=== PATIENT | male | born 1970 | race Caucasian/White ===

== ENCOUNTER 2020-05-24 16:25 | Emergency (ER) | payer SELFPAY ==
[2020-05-24 16:36] VITALS: BP 164/106; PULSE 97; RESP 18; TEMP 36.6; O2SAT 98; BMI 30.4
--- NOTE | 2020-05-24 17:09 | XR_ITS ---
WS: [id number] Left forearm, AP and lateral views, 05/24/2020 Clinical Data: injury Comparison: None. Findings: No fracture or dislocations are seen. There is soft tissue swelling on the ulnar side of the forearm at the junction of the middle and proximal thirds. There are small densities in this region. They may represent retained foreign bodies. There are also surgical jung at the swelling. The visualized l eft wrist and elbow show no obvious abnormalities. XR/XR forearm LT 2V [id number] Impression: 1. Soft tissue swelling of the ulnar side of the subcutaneous tissue of the miley ction of the proximal and middle thirds of the left forearm. 2. Small radiopaque foreign bodies near the site of injury and also proximal to the site of injury.
--- NOTE | 2020-05-24 17:13 | W.ED.EXTPRO ---
HPI - Extremity Problem General: Chief complaint: Extremity Injury, Upper Stated complaint: L ARM INJURY Time Seen by Provider: 05/24/20 16:42 Source: patient Mode of arrival: ambulatory Limitations: no limitations History of Present Illness: HPI Narrative: 49-year-old male who states tempered glass shattered lacerated his left forearm. He is roughly 7 a centimeter laceration to the forearm. He denies any loss of sensation or strength distally. He denies any retained foreign bodies. His last tetanus was less than 5 years ago. Associated symptoms: Deny chest pain, fever(s) or rash Review of Systems Const: Denies: fever(s), chills, body aches or change in appetite Eyes: Denies: blurry vision or eye discomfort ENMT: Denies: throat pain or dental pain Card: Denies: chest pain Resp: Denies: dyspnea GI: Denies: abdominal pain, nausea, vomiting or diarrhea : Denies: dysuria Musc: Denies: neck pain or back pain Skin/Breast: Denies: rash Neuro: Denies: headache(s) Psych: Denies: depression Apolinar/Lymph: Denies: easy bruising All/Imm: Denies: urticaria Physical Exam Const: COMMON NORMALS: no acute distress, patient oriented x3 and healthy appearing HENMT: COMMON NORMALS: normocephalic and atraumatic HEAD & SCALP: normocephalic and atraumatic Eye: COMMON NORMALS: Equal, round and reactive pupils present and EOMs intact bilaterally PUPIL: Yes Equal, round and reactive pupils present Neck/C-Spine: COMMON NORMALS: full ROM and supple Chest: COMMONS NORMALS: normal inspection of the chest and normal palpation of entire chest wall Resp: COMMON NORMALS: normal respiratory effort, No retractions, No use of accessory muscles and clear to auscultation bilaterally AUSCULTATION: clear to auscultation bilaterally Cardio: COMMON NORMALS: regular rate, regular rhythm and No murmurs present (Cardio) RATE: regular rate RHYTHM: regular rhythm GI: COMMON NORMALS: Normal to inspection, nondistended, normoactive bowel sounds present, Soft to palpation, non-tender and no masses PALPATION: Yes Soft to palpation Extremity: COMMON NORMALS: normal to inspection and full ROM Neuro: COMMON NORMALS: patient oriented x3, moves all extremities and no focal motor deficits Psych: COMMON NORMALS: mental status grossly normal, Normal thought process present and cooperative THOUGHT PROCESS: Normal thought process present Skin: COMMON NORMALS: no rashes or lesions noted NARRATIVE SKIN EXAM: 8 cm laceration with no muscle involvement. Patient has multiple small pieces of glass in there. Patient has full sensation intact distally and no pulse deficits. GENERAL SKIN EXAM: no rashes or lesions noted Procedures Laceration Laceration 1: Site: upper extremity Side (If applicable): left Size (cm): 8 Description: linear Local Anesthetic: lidocaine 1% Amount of anesthesia used (mL): 10 Pre-repair: wound explored, irrigated extensively and deep structures intact Skin layer closed with: other (jung) Course Vital Signs: Vital signs: Vital Signs Temperature 97.8 F 05/24/20 16:36 Pulse Rate 97 05/24/20 16:36 Respiratory Rate 18 05/24/20 16:36 Blood Pressure 164/106 05/24/20 16:36 Pulse Oximetry 98 05/24/20 16:36 MDM - Extremity (Nontraumatic) MDM Narrative: Medical decision making narrative: Patient presents here with forearm laceration. He had multiple pieces of glass in the wound I did irrigate it as thoroughly as possible. X-ray still showed one small piece of possibly retained glass that was unable to washout. Will place patient on Keflex and have him follow-up with Ellie. Patient is to have his jung out in 2 weeks. He had no neurovascular compromise. He is to return if worsening. Imaging Data^: Other Xray: Attestation: I personally reviewed and interpreted this imaging study as follows: My impression: possible small foreign body noted Discharge Plan Discharge Patient Disposition: Home Clinical Impression: Forearm laceration Qualifiers: Encounter type: initial encounter Laterality: left Qualified Code(s): S51.812A - Laceration without foreign body of left forearm, initial encounter Condition: Stable Prescriptions: New Keflex 500 mg capsule 500 mg PO Q6H 7 Days Qty: 28 RF: 0 Discharge Orders: Discharge Order (Routine); Ordered 05/24/20 Ordered By: Cali Santana Referrals: Manpreet Argueta MD [Physician] - 1-3 days Discharge Diet: Advance as tolerated Discharge Activity: Resume usual activity Patient Instructions: Laceration (ED) Activity Restrictions/Additional Instructions: jung need removed in 2 weeks Coding Level of Care Code ED Lithographers Printer for Chg Fwd
[2020-05-24 18:05] VITALS: BP 140/74; PULSE 70; RESP 18; O2SAT 98
--- NOTE | 2020-05-25 08:54 | DCPLANNER ---
land development manager had message to schedule a follow up appointment for patient with ortho. land development manager called the ortho clinic, spoke with Lesvia, gave clinic patients information. land development manager was told that patients information would be printed and reviewed. Clinic will call patient with appointment information.
--- NOTE | 2020-05-31 12:29 | DCPLANNER ---
Patient has a follow up appointment scheduled for May at 9:[address] Romero. Clinic will call patient with appointment information.
--- NOTE | 2020-06-16 17:31 | DCPLANNER ---
Patient had a follow up appointment scheduled for 06.01.20 with ortho - patient did not attend appointment.
== END 2020-05-24 18:10 | disposition home or self-care (01) ==
PROVIDERS: Emergency Provider Emergency Medicine
DX: S51.812A Laceration without foreign body of left forearm, initial encounter (principal); W25.XXXA Contact with sharp glass, initial encounter
CPT/HCPCS: 12004; 12345; 73090; 99281; 99283

== ENCOUNTER 2021-07-12 00:32 | Emergency (ER) | payer SELFPAY ==
[2021-07-12 00:50] VITALS: BP 171/86; PULSE 84; RESP 18; TEMP 36.3; O2SAT 95; BMI 30.1
--- NOTE | 2021-07-12 01:01 | XRR_ITS ---
PROCEDURE INFORMATION: Exam: XR Abdomen Exam date and time: 07/12/2021 1:01 AM Age: 50 years old Clinical indication: Abdominal pain; Generalized; Patient HX: Constipation with n/v. ; Additional info: Generalized abdominal pain, constipation TECHNIQUE: Imaging protocol: XR of the abdomen. Views: Frontal supine view of the abdomen. 1 View. COMPARISON: CR Chest 2 views* [id number] 10/12/2018 10:09 AM FINDINGS: Gastrointestinal tract: Moderate fecal volume. No bowel dilation. Bones/joints: Unremarkable. XR/XR KUB [id number] IMPRESSION: No acute findings. Radiation Dose CTDIVOL = (mGy): DLP = (mGy-cm)
--- NOTE | 2021-07-12 01:01 | W.ED.ABDPA2 ---
HPI - Abdominal Pain General: Chief Complaint: Abdominal Pain Stated Complaint: N/V, constipated Time Seen by Provider: 07/12/21 00:42 History of Present Illness: HPI narrative: Patient is a 50-year-old male comes to the ED with abdominal pain, constipation, nausea and vomiting. Symptoms started approximately 2 hours before arriving to the ED and were sudden onset. He describes the pain as being in his left flank and radiating to the front of his abdomen. He says he cannot get comfortable and he developed nausea and had an episode of emesis as well. Pain was worse and has improved since coming to the ED and he currently rates his pain a 5 out of 10. He says he felt like he needed to have a bowel movement but was unable to. Endorses constipation and says that he has not had a bowel movement in over 24 hours. Denies any fever, chills, bladder or bowel symptoms. Denies any relieving or worsening factors. Denies any history of kidney stones. Patient says he does not want any pain meds at this time. Associated Symptoms: Reports constipation, nausea and vomiting; Denies chills, diarrhea, dysuria, fever(s), hematochezia and hematuria Review of Systems Const: Denies: fever(s), chills or fatigue Eyes: Denies: change in vision or eye discomfort ENMT: Denies: throat pain, odynophagia, nasal discharge or nasal congestion Card: Denies: chest pain, palpitations, edema, swelling of feet/ankles, dyspnea on exertion or orthopnea Resp: Denies: dyspnea, productive cough or non-productive cough GI: Reports: abdominal pain, nausea, vomiting and constipation; Denies: diarrhea or hematochezia : Reports: flank pain (left flank); Denies: difficulty urinating, dysuria or hematuria Musc: Denies: neck pain, back pain or extremity swelling Skin/Breast: Denies: rash or new lesions Neuro: Denies: headache(s), numbness in extremities or weakness in extremities Physical Exam Narrative: EXAM NARRATIVE: Patient is a 50-year-old male that appears uncomfortable and in some pain during exam. He is sitting up in constantly moving/repositioning during exam. Const: COMMON NORMALS: patient oriented x3 and alert GENERAL APPEARANCE: cooperative; not comfortable (Patient appears uncomfortable and is sitting up in repositioning during exa) HENMT: COMMON NORMALS: normocephalic HEAD & SCALP: normocephalic MOUTH: Normal oral and palatal mucosa present THROAT: posterior oropharynx normal and uvula midline Neck/C-Spine: COMMON NORMALS: supple GENERAL: Yes normal visual inspection Resp: COMMON NORMALS: normal respiratory effort, No retractions, No use of accessory muscles and clear to auscultation bilaterally AUSCULTATION: clear to auscultation bilaterally Cardio: COMMON NORMALS: regular rate, regular rhythm, S1 normal heart sound present, S2 normal heart sound present, No gallops present (Cardio), No clicks present (Cardio), No murmurs present (Cardio) and Peripheral pulses 2+ throughout RATE: regular rate RHYTHM: regular rhythm HEART SOUNDS: S1 normal heart sound present and S2 normal heart sound present PERIPHERAL PULSES: Peripheral pulses 2+ throughout GI: COMMON NORMALS: Normal to inspection, nondistended, normoactive bowel sounds present, Soft to palpation, non-tender and no masses INSPECTION: Yes central obesity PALPATION: Yes Soft to palpation : COMMON NORMALS: Yes no CVA tenderness BLADDER/KIDNEY EXAM: Yes no CVA tenderness Back/Pelvis: COMMON NORMALS: no CVA tenderness Extremity: COMMON NORMALS: normal to inspection Neuro: COMMON NORMALS: patient oriented x3 SENSORIUM/ORIENTATION: Yes alert GAIT: Yes Normal gait present Skin: GENERAL SKIN EXAM: dry skin Course ED course: After my initial history and exam of patient. I offered some pain meds. Patient said he does not want any pain meds at this time. I told him to let me know if he changes his mind. Vital Signs: Vital signs: Vital Signs Temperature 97.4 F L 07/12/21 00:50 Pulse Rate 84 07/12/21 00:50 Respiratory Rate 18 07/12/21 00:50 Blood Pressure 171/86 07/12/21 00:50 Pulse Oximetry 95 07/12/21 00:50 MDM - Abdominal Pain MDM Narrative: Medical decision making narrative: Patient is a 50-year-old male comes to the ED with acute onset of left flank pain, nausea, vomiting. Symptoms started a couple hours prior to arrival to the ED. Patient also endorsed having some constipation as well. Exam shows a patient that appears uncomfortable and constantly changing positions. No palpable abdominal tenderness and no CVA tenderness. Vital stable. White blood cell count 19.9 and the rest of CBC and CMP were unremarkable. Blood cultures pending. UA shows a lot of red blood cells but no signs of any infection. KUB showed no acute findings. CT of abdomen showed 2 distal left ureter kidney stones close to UVJ. Stone sizes are 3 mm and 4 mm. Patient was given IV fluids, Zofran, tamsulosin and Toradol while here in the ED and his symptoms improved. I placed an order with rehabilitation case coordinator for patient be referred to urologist for further evaluation of kidney stones. He was discharged home with a prescription for Zofran, tamsulosin and naproxen. Patient did not want narcotic pain meds. He was told to strain his urine to catch stone to bring stone to Dr. Moore's office at scheduled appointment. Return to ED precautions given. Patient understood agree with plan. Lab Data: Attestation: I reviewed the patient's lab results. Labs: Lab Results 07/12/21 07/12/21 07/12/21 01:00 01:28 01:28 WBC 19.9 10^3/uL H 10 ^3/uL (4.0-10.0) RBC 5.26 10^6/uL 10^6 /uL (4.1-5.3) Hgb 16.5 g/dL g/dL (11.7-16.6) Hct 49.1 % % (42.0-52.0) MCV 93.3 fl fl (80-94) MCH 31.4 pg pg (28.0-34.0) MCHC 33.6 g/dL g/dL (30.0-36.0) RDW 12.7 % % (12.1-15.1) Plt Count 270 10^3/cmm 10^3 /cmm (130-400) MPV 9.7 fL fL (7.4-10.4) Neut % (Auto) 87.7 % % Lymph % (Auto) 7.4 % % [place] % (Auto) 3.6 % % Eos % (Auto) 0.1 % % Baso % (Auto) 0.6 % % Neut # (Auto) 17.43 10^3/uL H 1 0^3/uL (1.8-7.7) Lymph # (Auto) 1.5 10^3/uL 10^3/ uL (0.8-4.8) [place] # (Auto) 0.7 10^3/uL 10^3/ uL (0.2-0.9) Eos # (Auto) 0.0 10^3/uL 10^3/ uL (0.0-0.8) Baso # (Auto) 0.1 10^3/uL 10^3/ uL (0.0-0.1) Nucleated RBC % (a uto) 0 % % Nucleated RBCs # 0.0 /100WBC /100W BC Sodium 139 mmol/L mmol/L (136-145) Potassium 4.5 mmol/L mmol/L (3.5-5.1) Chloride 103 mmol/L mmol/L (98-107) Carbon Dioxide 21 mmol/L L mmol/ L (22-29) Anion Gap 19.5 H (5-19) BUN 11 mg/dL mg/dL (6-20) Creatinine 1.1 mg/dL mg/dL (0.7-1.2) GFR Calculation 71.4 mL/min L mL/ min (90-130) Glucose 146 mg/dL H mg/dL (65-115) Calculated Osmolal ity 290 mOsm/kg mOsm/ kg (285-295) Calcium 8.9 mg/dL mg/dL (8.5-10.5) Total Bilirubin 0.2 mg/dL mg/dL (0.15-1.2) AST 15 U/L U/L (0-40) ALT 22 U/L U/L (0-41) Alkaline Phosphata se 95 IU/L IU/L (40-130) Total Protein 7.6 g/dL g/dL (6.6-8.7) Albumin 4.3 g/dL g/dL (3.5-5.2) Globulin 3.3 g/dL g/dL (1.3-4.6) Lipase 24 U/L U/L (13-60) Urine Color Yellow (Yellow) Urine Appearance Clear (CLEAR) Urine pH 5 (5-7) Ur Specific Gravit y 1.020 (1.005-1.030) Urine Protein Trace (Negative) Urine Glucose (UA) Norm (Normal) Urine Ketones Negative (Negative) Urine Blood 3+ H (Negative) Urine Nitrate Negative (Negative) Urine Bilirubin Neg (Negative) Urine Urobilinogen 1 mg/dL H mg/dL (Negative) Ur Leukocyte Kelley ase Negative (Negative) Urine RBC Too numerous to c nt /hpf H /hpf (0-2) Urine WBC Rare /hpf /hpf (0-5) Ur Squamous Epith Cells 0-4 /hpf H /hpf (0-5) Amorphous Sediment Not Reportable Urine Bacteria None /hpf /hpf (NONE) Imaging Data ^: KUB: Attestation: I personally reviewed and interpreted this imaging study as follows: Radiologist's impression: [facility] [address] [place] [id number] XRay Report Signed Patient: Kevin Carrillo Unit #: [id number] : 1970 Age/Sex: 50 / M ADM Date: 07/12/21 Loc: ER Room/Bed: Attending Dr: Ordering Provider/Ordering MD: Kevin Chang Date of Service: 07/12/21 Procedure(s): XR KUB 73896 Accession Number(s): [id number] Report Number: [id number] PROCEDURE INFORMATION: Exam: XR Abdomen Exam date and time: 07/12/2021 1:01 AM Age: 50 years old Clinical indication: Abdominal pain; Generalized; Patient HX: Constipation with n/v. ; Additional info: Generalized abdominal pain, constipation TECHNIQUE: Imaging protocol: XR of the abdomen. Views: Frontal supine view of the abdomen. 1 View. COMPARISON: CR Chest 2 views* [id number] 10/12/2018 10:09 AM FINDINGS: Gastrointestinal tract: Moderate fecal volume. No bowel dilation. Bones/joints: Unremarkable. XR/XR KUB [id number] IMPRESSION: No acute findings. Radiation Dose CTDIVOL = (mGy): DLP = (mGy-cm) Dictated By: Pravin Godoy Signed By: Pravin Godoy Signed Date/Time: 07/12/21225 DD/ 0 CT Abd/Pel: Attestation: I personally reviewed and interpreted this imaging study as follows: Radiologist's impression: [facility] [address] [place] [id number] Scan Report Signed Patient: Kevin Carrillo [facility] [id number] [facility] 1970 [id number] Age/Sex: 50 / M ADM Date: 07/12/21 Loc: ER Room/Bed: Attending Dr: Ordering Provider/Ordering MD: Kevin Chang Date of Service: 07/12/21 Procedure(s): CT kidney stone [id number] Accession Number(s): [id number] Report Number: [id number] PROCEDURE INFORMATION: Exam: CT Abdomen And Pelvis Without Contrast Exam date and time: 07/12/2021 1:29 AM Age: 50 years old Clinical indication: Abdominal pain; Patient HX: Left flank pain with micro hematuria. ; Additional info: Sudden onset of left flank pain, n/v TECHNIQUE: Imaging protocol: Computed tomography of the abdomen and pelvis without contrast. Radiation optimization: All CT scans at this facility use at least one of these dose optimization techniques: automated exposure control; mA and/or kV adjustment per patient size (includes targeted exams where dose is matched to clinical indication); or iterative reconstruction. COMPARISON: CR (ABDOMEN, ) 07/12/2021 1:06 AM RADIATION DOSE METRICS: Total DLP (mGy-cm): 1770.57 FINDINGS: Liver: Normal. No mass. Gallbladder and bile ducts: Normal. No calcified stones. No ductal dilation. Pancreas: Normal. No ductal dilation. Spleen: 13.8 cm mild splenomegaly. Adrenal glands: Normal. No mass. Kidneys and ureters: 3 mm distal left ureteral stone at the level of S4, 4 cm proximal to the left UVJ, with mild left hydronephrosis. Stomach and bowel: Unremarkable. No obstruction. No mucosal thickening. Appendix: No evidence of appendicitis. Intraperitoneal space: Unremarkable. No free air. No significant fluid collection. Vasculature: Calcification of the abdominal aorta and/or iliac arteries consistent with atherosclerotic vessel disease. Lymph nodes: Unremarkable. No enlarged lymph nodes. Urinary bladder: Unremarkable as visualized. Reproductive: Nonspecific prostate calcifications. Bones/joints: Unremarkable. No acute fracture. Soft tissues: Unremarkable. CT/CT kidney stone [id number] IMPRESSION: 3 mm distal left ureteral stone at the level of S4, 4 cm proximal to the left UVJ, with mild left hydronephrosis. Radiation Dose CTDIVOL = (mGy): DLP = 1770.57 (mGy-cm) Dictated By: Blue Neff MD Signed By: Blue Neff MD Signed Date/Time: 07/12/21312 DD/ Discharge Plan Discharge Patient Disposition: Home Clinical Impression: Kidney stone on left side Condition: Stable Prescriptions: New tamsulosin 0.4 mg capsule 0.4 mg PO DAILY Qty: 15 RF: 0 Naprosyn 500 mg tablet 500 mg PO BID PRN (Reason: pain) Qty: 20 RF: 0 Zofran 4 mg tablet 4 mg PO Q8H PRN (Reason: nausea and vomiting) Qty: 10 RF: 0 Discharge Orders: Discharge ED (Routine); Ordered 07/12/21 Ordered By: Kevin Chang Discharge Diet: Regular Discharge Activity: Resume usual activity Patient Instructions: Kidney Stones (ED), How to Strain Your Urine (ED) Activity Restrictions/Additional Instructions: Follow-up with medical provider as directed. Case management should be contacting you in the next several days to set up an appointment with Dr. Moore the urologist. Strain urine to catch stone and drink lots of fluid to stay hydrated and help pass stone. Take medications as prescribed. Return to the ER or your medical provider if condition worsens. Please read and understand discharge instructions. If any questions, please ask. Coding Level of Care Code ED Client Services Administrator for Anneg Fwd Exam Comprehensive
--- NOTE | 2021-07-12 01:29 | CTR_ITS ---
PROCEDURE INFORMATION: Exam: CT Abdomen And Pelvis Without Contrast Exam date and time: 07/12/2021 1:29 AM Age: 50 years old Clinical indication: Abdominal pain; Patient HX: Left flank pain with micro hematuria. ; Additional info: Sudden onset of left flank pain, n/v TECHNIQUE: Imaging protocol: Computed tomography of the abdomen and pelvis without contrast. Radiation optimization: All CT scans at this facility use at least one of these dose optimization techniques: automated exposure control; mA and/or kV adjustment per patient size (includes targeted exams where dose is matched to clinical indication); or iterative reconstruction. COMPARISON: CR (ABDOMEN, ) 07/12/2021 1:06 AM RADIATION DOSE METRICS: Total DLP (mGy-cm): 1770.57 FINDINGS: Liver: Normal. No mass. Gallbladder and bile ducts: Normal. No calcified stones. No ductal dilation. Pancreas: Normal. No ductal dilation. Spleen: 13.8 cm mild splenomegaly. Adrenal glands: Normal. No mass. Kidneys and ureters: 3 mm distal left ureteral stone at the level of S4, 4 cm proximal to the left UVJ, with mild left hydronephrosis. Stomach and bowel: Unremarkable. No obstruction. No mucosal thickening. Appendix: No evidence of appendicitis. Intraperitoneal space: Unremarkable. No free air. No significant fluid collection. Vasculature: Calcification of the abdominal aorta and/or iliac arteries consistent with atherosclerotic vessel disease. Lymph nodes: Unremarkable. No enlarged lymph nodes. Urinary bladder: Unremarkable as visualized. Reproductive: Nonspecific prostate calcifications. Bones/joints: Unremarkable. No acute fracture. Soft tissues: Unremarkable. CT/CT kidney stone [id number] IMPRESSION: 3 mm distal left ureteral stone at the level of S4, 4 cm proximal to the left UVJ, with mild left hydronephrosis. Radiation Dose CTDIVOL = (mGy): DLP = 1770.57 (mGy-cm)
[2021-07-12 01:46] LABS: Basophils # 0.1 10^3/uL (0.0-0.1); Basophils % 0.6 %; Eosinophils % 0.1 %; Hematocrit 49.1 % (42.0-52.0); Hemoglobin 16.5 g/dL (11.7-16.6); Lymphocytes # 1.5 10^3/uL (0.8-4.8); Lymphocytes % 7.4 %; Mean Corpuscular HGB Conc 33.6 g/dL (30.0-36.0); Mean Corpuscular Hemoglobin 31.4 pg (28.0-34.0); Mean Corpuscular Volume 93.3 fl (80-94); Mean Platelet Volume 9.7 fL (7.4-10.4); Monocytes # 0.7 10^3/uL (0.2-0.9); Monocytes % 3.6 %; Neutrophils # 17.43 10^3/uL (1.8-7.7); Neutrophils % 87.7 %; Nucleated Red Blood Cells % 0 %; Platelet Count 270 10^3/cmm (130-400); Red Blood Count 5.26 10^6/uL (4.1-5.3); Red Cell Distribution Width 12.7 % (12.1-15.1); White Blood Count 19.9 10^3/uL (4.0-10.0)
[2021-07-12] MEDS: sodium chloride 0.9% 500 ML 999 ML IV (01:50)
[2021-07-12] MEDS: ondansetron 2 mg/ML SDV 2 mL 4 MG IVP (01:52)
[2021-07-12 02:07] LABS: Bilirubin Urine Neg (Negative); Blood Urine 3+ (Negative); Glucose Urine UA Norm (Normal); Ketones Urine Negative (Negative); Leukocyte Esterase Urine Negative (Negative); Nitrate Urine Negative (Negative); Protein Urine Trace (Negative); Urine Appearance Clear (CLEAR); Urine Color Yellow (Yellow); Urobilinogen Urine 1 mg/dL (Negative); pH Urine 5 (5-7)
[2021-07-12 02:08] LABS: Add Urine Microscopic? YES
[2021-07-12 02:09] LABS: Alanine Aminotransferase 22 U/L (0-41); Albumin Level 4.3 g/dL (3.5-5.2); Alkaline Phosphatase 95 IU/L (40-130); Anion Gap 19.5 (5-19); Aspartate Amino Transferase 15 U/L (0-40); Blood Urea Nitrogen 11 mg/dL (6-20); Calcium 8.9 mg/dL (8.5-10.5); Carbon Dioxide 21 mmol/L (22-29); Chloride 103 mmol/L (98-107); Globulin 3.3 g/dL (1.3-4.6); Glomerular Filtration Rate 71.4 mL/min (90-130); Glucose 146 mg/dL (65-115); Lipase 24 U/L (13-60); Osmolality Calculated 290 mOsm/kg (285-295); Potassium 4.5 mmol/L (3.5-5.1); Sodium 139 mmol/L (136-145); Total Bilirubin 0.2 mg/dL (0.15-1.2); Total Protein 7.6 g/dL (6.6-8.7)
[2021-07-12 02:09] LABS: Add Urine Culture? Yes; RBC Urine TOO NUMEROUS TO CNT /hpf (0-2); Squamous Epithelial Cell Urine 0-4 /hpf (0-5); WBC Urine RARE /hpf (0-5)
[2021-07-12] MEDS: ketorolac 30 mg/mL INJ IVP (04:01)
[2021-07-12] MEDS: tamsulosin 0.4 mg Capsule PO (04:10)
[2021-07-12 04:11] VITALS: BP 142/86; PULSE 98; RESP 16; O2SAT 94
--- NOTE | 2021-07-12 10:10 | DCPLANNER ---
housing assistant property manager had message to schedule a follow up appointment for patient with Dr. Moore. housing assistant property manager called the office of Dr. Moore, spoke with Tena, gave clinic patients information. housing assistant property manager was told that patients information would be printed and reviewed. Clinic will call patient with appointment information.
--- NOTE | 2021-07-13 11:31 | DCPLANNER ---
Patient had a follow up appointment scheduled with Dr. Moore - appointment was cancelled.
--- NOTE | 2021-07-17 15:46 | DCPLANNER ---
Tonio from Dr. Darby office called case assembler and stated that clinic has tried to call patient to schedule follow up appointment and have not been able to reach patient.
== END 2021-07-12 04:13 | disposition home or self-care (01) ==
PROVIDERS: Emergency Provider Physician Assistant
DX: N20.0 Calculus of kidney (principal)
CPT/HCPCS: 74018; 74176; 80053; 81001; 83690; 85025; 87040; 87086; 96374; 96375; 99283; J1885; J2405; J7040